=== PATIENT | female | born 2000 | race Caucasian/White ===

== ENCOUNTER 2020-03-15 11:58 | Emergency (ER) | payer BC ==
[~2020-03-15] VITALS: Ht 167.6 cm; Wt 68.2 kg
[2020-03-15 12:07] VITALS: TEMP 98.2
[2020-03-15] MEDS ORDERED: FLEXERIL 1010 MG/TAB PO (14:00)
[2020-03-15] MEDS ORDERED: NORCO 325 MG-51 TAB PO (14:00)
[2020-03-15 14:16] VITALS: BP 128/72; PULSE 102
== END 2020-03-15 14:18 | disposition home or self-care (01) ==
LOC: COL.ER 11:58
DX: S16.1XXA Strain of muscle, fascia and tendon at neck level, initial encounter (principal); M62.838 Other muscle spasm; Z88.0 Allergy status to penicillin
CPT/HCPCS: J1885